=== PATIENT | female | born 1935 | race Caucasian/White ===

== ENCOUNTER 2017-07-30 21:19 | Inpatient (IN) | payer MEDICARE, MEDICAID ==
[~2017-07-30] VITALS: Ht 149.9 cm; Wt 68.0 kg
[~2017-07-30 21:19] MED LIST: AMIO200T2 PO; ASPI-1152 PO; CALC500T52 PO; CLON0.1T PO; CYCL30DR EACHEYE; DENO60DI SQ; DIPH25CA6 PO; ERGO500014 PO; EZET10TA14 PO; ICOS1CAP PO
[2017-07-30] MEDS ORDERED: IV NS 0.9% 1,000 ML BAG IV ONE (21:30)
[2017-07-30] MEDS ORDERED: ONDANSETRON HCL/PF 4 MG/2 ML VIAL IVP ONE (21:30)
[2017-07-30 21:57] LABS: BASOPHILS # (AUTO) 0.1 /CMM (0.0-0.2); BASOPHILS % (AUTO) 0.4 % (0.0-2.0); EOSINOPHILS # (AUTO) 0.1 /CMM (0.0-0.7); EOSINOPHILS % (AUTO) 0.9 % (0.0-6.0); HEMATOCRIT 40 % (33-45); HEMOGLOBIN 13.9 g/dL (11.5-14.8); LYMPHOCYTES # (AUTO) 2.8 /CMM (0.8-4.8); LYMPHOCYTES % (AUTO) 18.8 % (20.0-44.0); MEAN CORPUSCULAR HEMOGLOBIN 30 PG (26.0-33.0); MEAN CORPUSCULAR HGB CONC 34 g/dl (31.0-36.0); MEAN CORPUSCULAR VOLUME 86 fL (82-100); MONOCYTES # (AUTO) 0.8 /CMM (0.1-1.30); MONOCYTES % (AUTO) 5.3 % (2.0-12.0); NEUTROPHILS # (AUTO) 11.1 /CMM (1.8-8.9); NEUTROPHILS % (AUTO) 74.6 % (43.0-81.0); PLATELET COUNT (AUTO) 182 /CMM (150-450); RDW COEFFICIENT OF VARIATION 16.8 (11.5-15.0); RED BLOOD CELL COUNT(AUTO) 4.69 MIL/uL (4.0-5.2); WHITE BLOOD COUNT (AUTO) 14.9 K/uL (4.3-11.0)
[2017-07-30] MEDS ORDERED: ONDANSETRON HCL/PF 4 MG/2 ML VIAL ONE (21:57)
[2017-07-30 22:08] LABS: CALCIUM, SERUM 9.9 mg/dL (8.5-10.1); CARBON DIOXIDE 24 mmol/L (21-32); CHLORIDE 105 mmol/L (98-107); CREATININE 0.9 mg/dL (0.6-1.3); GLUCOSE 141 mg/dL (74-106); POTASSIUM 4.3 mmol/L (3.5-5.1); SODIUM SERUM 139 mmol/L (136-145); UREA NITROGEN, BLOOD 26 mg/dL (7-18)
[2017-07-30 22:14] LABS: TROPONIN I < 0.017 ng/mL (0.00-0.056)
[2017-07-30 22:18] LABS: ALANINE AMINOTRANSFERASE 39 U/L (12-78); ALBUMIN 3.7 g/dL (3.4-5.0); ALKALINE PHOSPHATASE 78 U/L (46-116); ASPARTATE AMINOTRANSFERASE 33 U/L (15-37); BILIRUBIN,DIRECT 0.1 mg/dL (0.0-0.2); BILIRUBIN,TOTAL 0.4 mg/dL (0.2-1.0); LIPASE 216 U/L (73-393); TOTAL PROTEIN, SERUM 8.1 g/dL (6.4-8.2)
[2017-07-30] MEDS ORDERED: MORPHINE SULFATE INJ 2 MG/ML DISP.SYRIN ONE (22:24)
[2017-07-30] MEDS ORDERED: MORPHINE SULFATE INJ 2 MG/ML DISP.SYRIN IV ONE (22:30)
[2017-07-30 23:02] LABS: APPEARANCE,URINE CLEAR (CLEAR); BILIRUBIN,URINE NEGATIVE (NEGATIVE); BLOOD, URINE NEGATIVE Ery/uL (NEGATIVE); COLOR,URINE YELLOW (YELLOW); KETONES,URINE NEGATIVE (NEGATIVE); LEUKOCYTE ESTERASE ,URINE NEGATIVE (NEGATIVE); NITRITE, URINE NEGATIVE (NEGATIVE); PROTEIN,URINE NEGATIVE (NEGATIVE); UGLUCOSE NEGATIVE (NEGATIVE); UROBILINOGEN,URINE 0.2 EU/dL (0.2)
[2017-07-31] MEDS ORDERED: IV NS 0.9% 1,000 ML IV PRN (00:07)
[2017-07-31 00:24] VITALS: BP 147/80
[2017-07-31] MEDS ORDERED: Z GUARD REMEDY 2 OZ OINT TP PRN (00:30)
[2017-07-31] MEDS ORDERED: ACETAMINOPHEN 325 MG TABLET PO PRN (00:30)
[2017-07-31] MEDS ORDERED: MORPHINE SULFATE INJ 2 MG/ML DISP.SYRIN IV PRN (00:30)
[2017-07-31] MEDS ORDERED: MAG HYDROX/AL HYDROX/SIMETH 30 ML UDC PO PRN (00:30)
[2017-07-31] MEDS ORDERED: MAGNESIUM HYDROXIDE 30 ML UDC PO PRN (00:30)
[2017-07-31] MEDS ORDERED: ONDANSETRON HCL/PF 4 MG/2 ML VIAL IVP PRN (00:30)
[2017-07-31] MEDS ORDERED: ZOLPIDEM TARTRATE 5 MG TABLET PO PRN (00:30)
== END 2017-07-31 | disposition home or self-care (01) | DRG 392 ==
LOC: ER 21:22 → TELE1 23:11
PROVIDERS: ADMIT Internal Medicine; ATTEND Internal Medicine
DX: K57.92 Diverticulitis of intestine, part unspecified, without perforation or abscess without bleeding (principal); I11.0 Hypertensive heart disease with heart failure; I50.9 Heart failure, unspecified; I27.20 Pulmonary hypertension, unspecified; Z95.1 Presence of aortocoronary bypass graft; Z88.0 Allergy status to penicillin; I25.10 Atherosclerotic heart disease of native coronary artery without angina pectoris; Z95.810 Presence of automatic (implantable) cardiac defibrillator; Z88.8 Allergy status to other drugs, medicaments and biological substances; Z95.2 Presence of prosthetic heart valve; Z82.49 Family history of ischemic heart disease and other diseases of the circulatory system; Z83.3 Family history of diabetes mellitus; Z79.82 Long term (current) use of aspirin; Z79.899 Other long term (current) drug therapy; E78.5 Hyperlipidemia, unspecified; R73.9 Hyperglycemia, unspecified
CPT/HCPCS: 36415; 71045-TC; 80048-TC; 80076-TC; 81000-TC; 83690-TC; 84484-TC; 85025-TC; 87081-TC; A4606; J2270; J2405; J7030; Z7610